=== PATIENT | female | born 1960 | race Caucasian/White ===

== ENCOUNTER → 2021-05-07 | Outpatient (CLI) | payer SELFPAY | LOC: M LABSMTC 10:07 | PROVIDERS: ATTEND Pediatrics | DX: Z20.822 Contact with and (suspected) exposure to COVID-19 (principal) ==

== ENCOUNTER → 2022-03-01 | Outpatient (CLI) | LOC: M SOG 16:03 | PROVIDERS: ATTEND Orthopaedic Surgery Hand Surgery | DX: M25.521 Pain in right elbow (principal) ==

== ENCOUNTER → 2022-06-16 | Outpatient (CLI) | payer BC | LOC: M WHC 08:04 | PROVIDERS: ATTEND Physician Assistant | DX: N64.4 Mastodynia (principal) | CPT/HCPCS: 77066; G0279 ==

== ENCOUNTER → 2022-08-30 | Outpatient (REF) | payer BC | LOC: M SFHCWAGY 13:18 | PROVIDERS: ATTEND Nurse Practitioner Family | DX: Z12.4 Encounter for screening for malignant neoplasm of cervix (principal); N95.2 Postmenopausal atrophic vaginitis | CPT/HCPCS: 87624; G0123 ==

== ENCOUNTER → 2022-09-13 | Outpatient (CLI) | payer BC ==
[2022-09-13 10:48] LABS: CHOLESTEROL RISK RATIO 2.41 (<5); HDL CHOLESTEROL 70.8 MG/DL (>40); LDL CHOLESTEROL 86.4 MG/DL (<100); NON-HDL-C 100.2 MG/DL
== END ==
LOC: M LAB 08:53
PROVIDERS: ATTEND Internal Medicine
DX: E78.5 Hyperlipidemia, unspecified (principal)

== ENCOUNTER → 2023-12-12 | Outpatient (CLI) | payer BC | LOC: M WHC 11:30 | PROVIDERS: ATTEND Nurse Practitioner Family | DX: Z12.31 Encounter for screening mammogram for malignant neoplasm of breast (principal); R92.323 Mammographic fibroglandular density, bilateral breasts ==

== ENCOUNTER → 2023-12-13 | Outpatient (REF) | LOC: M EMP 08:27 | PROVIDERS: ATTEND Family Medicine | DX: Z11.52 Encounter for screening for COVID-19 (principal) ==

== ENCOUNTER → 2023-12-21 | Outpatient (CLI) | payer BC ==
[2023-12-21 10:30] LABS: CHOLESTEROL RISK RATIO 2.75 (<5); HDL CHOLESTEROL 62.5 MG/DL (>40); LDL CHOLESTEROL 96.1 MG/DL (<100); NON-HDL-C 109.5 MG/DL
== END ==
LOC: M WUC 08:50
PROVIDERS: ATTEND Internal Medicine
DX: E78.5 Hyperlipidemia, unspecified (principal)

== ENCOUNTER → 2024-03-26 | Outpatient (REF) | LOC: M EMP 14:33 | PROVIDERS: ATTEND Family Medicine | DX: Z11.52 Encounter for screening for COVID-19 (principal) ==

== ENCOUNTER → 2024-05-02 | Outpatient (CLI) | payer BC ==
[2024-05-02 10:42] LABS: APPEARANCE, URINE CLEAR (CLEAR); BACTERIA, URINE AUTO NEGATIVE (NEGATIVE); BILIRUBIN, URINE AUTO NEGATIVE (NEGATIVE); BLOOD, URINE BLOOD NEGATIVE (NEGATIVE); COLOR, URINE STRAW (YELLOW); GLUCOSE, URINE (UA) AUTO NEGATIVE (NEGATIVE); KETONE, URINE AUTO NEGATIVE (NEGATIVE); LEUKOCYTE ESTERASE, URINE AUTO NEGATIVE (NEGATIVE); NITRITE, URINE AUTO NEGATIVE (NEGATIVE); PROTEIN, URINE AUTO NEGATIVE (NEGATIVE); RBC, URINE AUTO 0 /HPF (0-3); SPECIFIC GRAVITY URINE AUTO 1.004 (1.002-1.035); SQUAMOUS EPITHELIAL CELL UR AU 1 /HPF (0-6); UROBILINOGEN, URINE AUTO 0.2 mg/dL (0.0-2.0); WBC, URINE AUTO 1 /HPF (0-3)
[2024-05-02 10:46] LABS: BASO % 0.2 % (0.0-1.0); EOS # 0.1 10^3/uL (0.0-0.5); HEMATOCRIT 41.7 % (36.0-47.0); HEMOGLOBIN 13.6 g/dl (12.0-15.5); LYMPH # 1.6 10^3/uL (1.5-5.0); LYMPH % 32.4 % (24.0-44.0); MEAN CORPUSCULAR HEMOGLOBIN 29.9 pg (27.0-33.0); MEAN CORPUSCULAR HGB CONC 32.6 g/dl (32.0-36.5); MEAN CORPUSCULAR VOLUME 91.6 fl (80.0-96.0); MONO # 0.5 10^3/uL (0.0-0.8); MONO % 10.5 % (2.0-8.0); NEUTROPHILS # 2.7 10^3/uL (1.5-8.5); NEUTROPHILS % 55.7 % (36.0-66.0); PLATELET COUNT, AUTOMATED 315 10^3/uL (150-450); RED BLOOD COUNT 4.55 10^6/uL (4.00-5.40); WHITE BLOOD COUNT 4.8 10^3/uL (4.0-10.0)
[2024-05-02 11:11] LABS: ALBUMIN 3.7 G/DL (3.2-5.2); ALKALINE PHOSPHATASE 79 U/L (35-104); ALT/SGPT 23 U/L (7.0-40); AST/SGOT 22 U/L (<34); BILIRUBIN,TOTAL 0.5 MG/DL (0.3-1.2); BLOOD UREA NITROGEN 11 MG/DL (9-23); CALCIUM LEVEL 9.1 MG/DL (8.3-10.6); CARBON DIOXIDE LEVEL 31 MMOL/L (20-31); CHLORIDE LEVEL 105 MMOL/L (98-107); CHOLESTEROL LEVEL 109 MG/DL (<200); CHOLESTEROL RISK RATIO 1.41 (<5); CREATININE FOR GFR 0.75 MG/DL (0.55-1.30); GLOMERULAR FILTRATION RATE > 60.0 (>45); GLUCOSE, FASTING 86 MG/DL (74-106); HDL CHOLESTEROL 77.3 MG/DL (>40); LDL CHOLESTEROL 22.7 MG/DL (<100); MAGNESIUM LEVEL 2.1 MG/DL (1.8-2.4); NON-HDL-C 31.7 MG/DL; POTASSIUM SERUM 4.5 MMOL/L (3.5-5.1); SODIUM LEVEL 144 MMOL/L (136-145); TOTAL PROTEIN 6.7 G/DL (5.7-8.2); TRIGLYCERIDES LEVEL 45 MG/DL (<150)
[2024-05-02 11:15] LABS: THYROID STIMULATING HORMONE 1.172 uIU/ML (0.55-4.78)
[2024-05-02 11:18] LABS: CPK CREATINE PHOSPHOKINASE 83 U/L (34-145)
[2024-05-02 11:51] LABS: HEMOGLOBIN A1c 5.8 % (4.0-6.0)
== END ==
LOC: M WUC 08:27
PROVIDERS: ATTEND Internal Medicine
DX: J45.909 Unspecified asthma, uncomplicated (principal); E78.00 Pure hypercholesterolemia, unspecified; M19.90 Unspecified osteoarthritis, unspecified site

== ENCOUNTER → 2024-05-02 | Outpatient (CLI) | payer BC ==
[2024-05-02 11:13] LABS: CHOLESTEROL RISK RATIO 1.42 (<5); LDL CHOLESTEROL 23.8 MG/DL (<100)
== END ==
LOC: M WUC 08:30
PROVIDERS: ATTEND Internal Medicine
DX: E78.5 Hyperlipidemia, unspecified (principal)

== ENCOUNTER 2025-01-11 09:27 | Emergency (ER) | payer BC ==
[~2025-01-11] VITALS: Ht 154.9 cm; Wt 71.3 kg
[2025-01-11] MEDS ORDERED: EZET10TA57 (09:46)
[2025-01-11] MEDS ORDERED: ROSU20TA86 (09:46)
[2025-01-11] MEDS ORDERED: REPA140I2 (09:46)
[2025-01-11 10:27] VITALS: O2SAT 98
[2025-01-11 10:39] VITALS: BP 108/58; TEMP 97.7
== END 2025-01-11 10:44 | disposition home or self-care (01) ==
LOC: M ED 09:27
DX: S82.62XA Displaced fracture of lateral malleolus of left fibula, initial encounter for closed fracture (principal); X50.0XXA Overexertion from strenuous movement or load, initial encounter; R22.42 Localized swelling, mass and lump, left lower limb; E78.5 Hyperlipidemia, unspecified; J45.909 Unspecified asthma, uncomplicated; Z79.899 Other long term (current) drug therapy; Y92.008 Other place in unspecified non-institutional (private) residence as the place of occurrence of the external cause; Y93.89 Activity, other specified; Y99.9 Unspecified external cause status

== ENCOUNTER → 2025-01-14 | Outpatient (CLI) | payer BC ==
[~2025-01-14] MED LIST: EZET10TA57; REPA140I2; ROSU20TA86
== END ==
LOC: M SOG 07:19
PROVIDERS: ATTEND Orthopaedic Surgery
DX: M25.572 Pain in left ankle and joints of left foot (principal)

== ENCOUNTER → 2025-01-22 | Outpatient (CLI) | payer BC | LOC: M WHC 14:56 | PROVIDERS: ATTEND Nurse Practitioner Family | DX: Z12.31 Encounter for screening mammogram for malignant neoplasm of breast (principal); R92.313 Mammographic fatty tissue density, bilateral breasts ==

== ENCOUNTER → 2025-02-06 | Outpatient (CLI) | payer BC | LOC: M SOG 07:19 | PROVIDERS: ATTEND Physician Assistant | DX: S82.65XA Nondisplaced fracture of lateral malleolus of left fibula, initial encounter for closed fracture (principal) ==

== ENCOUNTER → 2025-04-01 | Outpatient (CLI) | payer BC | LOC: M WHC 14:20 | PROVIDERS: ATTEND Nurse Practitioner Family | DX: Z13.820 Encounter for screening for osteoporosis (principal); N95.1 Menopausal and female climacteric states; M85.89 Other specified disorders of bone density and structure, multiple sites ==

== ENCOUNTER → 2025-04-08 | Outpatient (CLI) | payer BC | LOC: M SOG 07:34 | PROVIDERS: ATTEND Physician Assistant | DX: S82.65XD Nondisplaced fracture of lateral malleolus of left fibula, subsequent encounter for closed fracture with routine healing (principal); Y93.9 Activity, unspecified; Y92.9 Unspecified place or not applicable ==